=== PATIENT | male | born 1955 | race Caucasian/White ===

== ENCOUNTER 2017-10-14 08:08 | Emergency (ER) | payer OTHER ==
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
--- NOTE | 2017-10-14 09:11 | CR ---
EXAMINATION: Left shoulder HISTORY: Pain COMPARISON: None TECHNIQUE: 3 views FINDINGS/IMPRESSION: There is no acute osseous abnormality, dislocation, or fracture. Mild acromiocla vicular and glenohumeral osteoarthritic changes are noted. Bone mineralization is otherwise normal.
--- NOTE | 2017-10-14 09:15 | CT ---
EXAMINATION: Non contrast CT head and facial bones. Coronal and sagittal reformats. HISTORY: Pain FINDINGS: No evidence of intra or extra axial hemorrhage, mass, midline shift, hydrocephalus or edema. No hyp oattenuation changes in the major vascular territories to suggest acute infarct. No abnormal intracr anial calcifications are detected. No evidence of substantial vascular calcifications. Mild mucosal thickening within the maxillary sinuses. Mastoid air cells are clear. The pituitary stanislav a appears unremarkable. Calvarium is intact. No evidence of skull fracture. The orbital kaur and maxillary kaur appear intact. Zygomatic arch and pterygoid plates are intact. The mandible and temporomandibular joints are symmetric and preserved. The maxilla is intact. Mild le ftward deviation of the nasal septum. Orbits and globes are symmetric. Nasal bones are preserved. IMPRESSION: No acute intracranial or facial bone abnormality.
--- NOTE | 2017-10-14 09:19 | CT ---
EXAMINATION: CT cervical spine HISTORY: Pain COMPARISON: None TECHNIQUE: Axial CT images obtained through the cervical spine without contrast. Coronal and sagittal reconstructions obtained. FINDINGS: The cervical spinal alignment appears normal. The vertebral body heights appear maintained. Disc space narrowing noted at C5-C6 and C6-C7. Small osteophyte disc complex is also noted at the le vels. Bone mineralization is normal. Mild marginal osteophytes are noted. The lung apices are clear. The paravertebral soft tissues appear normal. IMPRESSION: 1. Degenerative changes without acute findings demonstrated.
== END 2017-10-14 09:50 | disposition home or self-care (01) ==
LOC: MW.ED 08:08
DX: S46.912A Strain of unspecified muscle, fascia and tendon at shoulder and upper arm level, left arm, initial encounter (principal); S00.83XA Contusion of other part of head, initial encounter; Y04.8XXA Assault by other bodily force, initial encounter; Y99.0 Civilian activity done for income or pay
CPT/HCPCS: 70450; 70486; 72125; 73030; 99284; A4566; 99282